=== PATIENT | female | born 1965 | race Caucasian/White ===

== ENCOUNTER 2016-06-25 20:18 | Observation (INO) | payer OTHER ==
[~2016-06-25] VITALS: Ht 160 cm; Wt 110.3 kg
[2016-06-25 21:38] LABS: BASO % 0.2 % (0.1-1.2); EOS # 0.1 10_X3_uL (0.0-0.4); EOS % 1.1 % (0.7-5.8); GRAN # 6.8 10_X3_uL (1.6-6.1); GRAN % 71.2 % (34.0-71.1); HEMATOCRIT 32.1 % (34-45); HEMOGLOBIN 10.8 g/dL (11.2-15.7); LYMPH # 2.2 10_X3_uL (1.2-3.7); LYMPH % 22.5 % (19.3-51.7); MEAN CORPUSCULAR HEMOGLOBIN 29.7 pg (27.0-33.0); MEAN CORPUSCULAR HGB CONC 33.6 g/dL (32.0-36.0); MEAN CORPUSCULAR VOLUME 88.2 fL (79-95); MONO # 0.5 10_X3_uL (0.2-0.9); PLATELET COUNT 366 x10_3/uL (182-369); RED BLOOD COUNT 3.64 x10_6/uL (3.9-5.2); WHITE BLOOD COUNT 9.6 x10_3/uL (4.0-10.0)
[2016-06-25 22:07] LABS: BLOOD UREA NITROGEN 13 mg/dL (7-18); CALCIUM 8.7 mg/dL (8.7-10.7); CARBON DIOXIDE 17 mmol/L (21-32); CREATINE KINASE 90 U/L (21-215); CREATININE 0.6 mg/dL (0.6-1.3); GLUCOSE,RANDOM 147 mg/dL (70-99); LIPASE 52 U/L (6.75-60.75); POTASSIUM 3.8 mmol/L (3.5-5.1); SODIUM 138 mmol/L (136-145)
[2016-06-25 22:31] LABS: URINE BILIRUBIN NEGATIVE (NEGATIVE); URINE BLOOD TRACE (NEGATIVE); URINE GLUCOSE (UA) NORMAL (NORMAL); URINE KETONE NEGATIVE (NEGATIVE); URINE LEUKOCYTE ESTERASE NEGATIVE (NEGATIVE); URINE NITRATE NEGATIVE (NEGATIVE); URINE PROTEIN 2+ (NEGATIVE); UROBILINOGEN NORMAL mg/dL (<1.0)
[2016-06-25 23:04] LABS: URINE RBC 0-5 /[HPF] (0-2)
[2016-06-25 23:05] LABS: URINE SQUAMOUS EPITHELIAL CELL 0-10 /[HPF] (NONE SEEN)
[2016-06-26 03:16] LABS: CKMB 1.4 ng/ml (0.0-5.0)
[2016-06-26 03:18] LABS: TROP-I < 0.30 NG/ML (0.00-0.30)
== END 2016-06-26 14:38 | disposition home or self-care (01) ==
LOC: ER 20:18 → MS 23:45
PROVIDERS: Emergency Medicine; ADMIT Family Medicine
DX: R55 Syncope and collapse (principal); R06.02 Shortness of breath; R20.0 Anesthesia of skin; I10 Essential (primary) hypertension; J44.9 Chronic obstructive pulmonary disease, unspecified; R00.2 Palpitations; R10.9 Unspecified abdominal pain; F41.9 Anxiety disorder, unspecified; F32.9 Major depressive disorder, single episode, unspecified; R51 Headache; G35 Multiple sclerosis; N93.9 Abnormal uterine and vaginal bleeding, unspecified; N85.2 Hypertrophy of uterus; Z90.49 Acquired absence of other specified parts of digestive tract; Z83.3 Family history of diabetes mellitus; Z80.41 Family history of malignant neoplasm of ovary; Z80.0 Family history of malignant neoplasm of digestive organs; Z80.1 Family history of malignant neoplasm of trachea, bronchus and lung; Z82.49 Family history of ischemic heart disease and other diseases of the circulatory system; Z87.448 Personal history of other diseases of urinary system; Z88.5 Allergy status to narcotic agent; Z79.899 Other long term (current) drug therapy
CPT/HCPCS: 36415; 70450; 71010; 80048; 81001; 82550; 82553; 82962; 83690; 83880; 84436; 84443; 85025; 93005; 93041; 99070; 99285-25; G0378